=== PATIENT | male | born 1955 | race Caucasian/White ===

== ENCOUNTER → 2019-04-07 | Day surgery (SDC) | payer BC | LOC: MSO 09:13 | DX: Z12.11 Encounter for screening for malignant neoplasm of colon (principal); D12.5 Benign neoplasm of sigmoid colon; K21.9 Gastro-esophageal reflux disease without esophagitis; I10 Essential (primary) hypertension; G47.33 Obstructive sleep apnea (adult) (pediatric); Z86.010 Personal history of colon polyps; Z79.82 Long term (current) use of aspirin; Z90.49 Acquired absence of other specified parts of digestive tract | CPT/HCPCS: 00811; J2704; J3010; J7120 ==